=== PATIENT | male | born 1985 | race Caucasian/White ===

== ENCOUNTER → 2016-05-20 | Outpatient (CLI) | payer SELFPAY ==
[2016-05-20 10:25] VITALS: BP 129/80
== END ==
LOC: MHUC 09:02
PROVIDERS: ATTEND Physician Assistant
DX: J01.00 Acute maxillary sinusitis, unspecified (principal); R05 Cough
CPT/HCPCS: 99213

== ENCOUNTER → 2016-07-18 | Outpatient (CLI) | payer OTHER ==
[~2016-07-18] MED LIST: AMOX500C5 PO; CEPH-507 PO; PRED20TA PO
[2016-07-18 12:37] VITALS: BP 124/86
--- NOTE | 2016-07-18 12:37 | Urgent Care T Sheet Gen (E) ---
Intake General Temperature (Fahrenheit): 98.7 Pulse: 81 Blood Pressure Systolic: 124 Blood Pressure Diastolic: 86 Respirations: 18 SPO2: 96 Description of Symptoms Patient presents with a red, swollen, painful R thumb x 2 days. Denies smashing the area but states he bites his nails. Redness is located along the proximal portion of the nail. Bandaged it last night. Put some H2O2 on it earlier without improvement. History of Present Illness Home Meds Active Scripts Prednisone 20 Mg [id number] Mg PO DAILY #6 TAB Prov:EMMA ZHONG 05/20/16 Amoxicillin (Amoxil)500 Mg [id number] Mg PO QID Infection #28 CAP Ref 0 Prov:EMMA ZHONG 05/20/16 Respiratory Constitutional Symptoms: No syptoms reported Skin: Change in color Lesions All Other Systems Reviewed Remaining Systems: All other systems reviewed with negative findings Physical Exam Physical Exam General Appearance: WD/WN No apparent distress Skin Exam: Other (redness and swelling noted along the proximal R thumb nail and surrounding skin. no drainage. feels full but I see no purulent material that needs drained.) Extremity Exam: Full range of motion Normal capillary refill Departure Urgent Care Impression Impression: Primary Impression: Paronychia Qualified Code: L03.011 - Cellulitis of right finger Departure Disposition: 01 HOME OR SELF-CARE Condition: Stable Referrals: GRETA COOK MD (PCP) Additional Instructions: I have started the patient on Keflex for treatment. DC the H2O2 Wrap the finger. May soak in warm water and Epsom salt or warm water and soap Return as needed Patient understands DC instructions. All questions were answered. Scripts Cephalexin (Keflex)500 Mg [id number] Mg PO QID Infection #28 CAP Ref 0 Prov:EMMA ZHONG 07/18/16 End of report . EMMA ZHONG July 18, 2016 12:36
== END ==
LOC: MHUC 12:22
PROVIDERS: ATTEND Physician Assistant
DX: L03.011 Cellulitis of right finger (principal)
CPT/HCPCS: 99212

== ENCOUNTER → 2016-07-21 | Outpatient (CLI) | payer OTHER ==
[2016-07-21 21:46] VITALS: BP 137/87
--- NOTE | 2016-07-21 21:46 | Urgent Care T Sheet Gen (E) ---
Intake General Temperature (Fahrenheit): 98.9 Pulse: 78 Blood Pressure Systolic: 137 Blood Pressure Diastolic: 87 Respirations: 18 SPO2: 97 Chief Complaint: sore/infected R thumb Source: Patient Exam Limitations: No limitations History of Present Illness Initial Comments Pt reports he came in and was seen for this on a few days ago, and was started on antibiotics at that time. He feels that the infection is improving in general , but a white pocket formed at the edge of the nail today, and his mother saw it and was very concerned about it. Pt reports no fever, chills, or malaise. He has had less redness or pain in the area, and has almost normal movement of the digit, as the swelling has almost entirely gone. He is here to find out if it needs to be lanced--which he would prefer not to do--or whether it should improve on its own with his current treatment. Timing: Still present Severity: Mild Prior Treatment: Recently seen (07/18/16) Allergies: Coded Allergies: No Known Drug Allergies (Unverified , 07/21/16) Home Meds Active Scripts Cephalexin (Keflex)500 Mg [id number] Mg PO QID Infection #28 CAP Ref 0 Prov:EMMA ZHONG 07/18/16 Prednisone 20 Mg Qecbxa51 Mg PO DAILY #6 TAB Prov:EMMA ZHONG 05/20/16 Amoxicillin (Amoxil)500 Mg [id number] Mg PO QID Infection #28 CAP Ref 0 Prov:EMMA ZHONG 05/20/16 Respiratory Constitutional Symptoms: See HPINo Chills, No Fever, No Malaise EENTM: No symptoms reported Cardiovascular: No symptoms reported Musculoskeletal: No symptoms reported see HPI Skin: See HPI Neurological: No symptoms reportedNo Tingling, No Weakness All Other Systems Reviewed Remaining Systems: All other systems reviewed with negative findings Physical Exam Physical Exam General Appearance: WD/WN No apparent distress Eyes, Ears, Nose, Throat Ex: PERRL/EOMI Respiratory Exam: Chest non-tender Lungs clear Normal breath sounds Cardiovascular Exam: Regular rate, rhythm No murmur Skin Exam: Warm/dry/intact Other (Dull erythema surrounding posterior R thumb at the PIP and distally to the nail bed. Fluctuance and white fluid noted under the skin measuring about 1cm squared, but without tenderness to palpation or significant warmth noted. ) Extremity Exam: Non-tender Full range of motion Normal capillary refill Neurologic/Psychiatric Exam: Oriented times 4 No sensory deficits Departure Urgent Care Impression Chief Complaint: sore/infected R thumb Impression: Primary Impression: Cellulitis of right finger Departure Disposition: 01 HOME OR SELF-CARE Condition: Stable Referrals: GRETA COOK MD (PCP) Additional Instructions: Discussed with pt that I agree that the infection is improving. From history and exam, it appears that the antibiotic is working well. If he wished to have the area lanced, it might resolve a little more quickly, but since he does not want to do this I think continuing his treatment as before is fine. He should continue the Epsom salt soaks, which may allow it to drain naturally, and continue his antibiotics. Indications for follow up would be if the redness, pain, or swelling increases again, if he develops fever, chills, or malaise, if the symptoms are not continuing to improve, or other concerning symptoms appear. If not fully resolved by the end of the antibiotics, I recommend he call to discuss whether he should continue these for a few days more to be certain, but otherwise I think he will do well. Pt states understanding and agrees to plan. All questions answered. End of report . TACO DAVENPORT July 21, 2016 20:20
== END ==
LOC: MHUC 19:38
PROVIDERS: ATTEND Physician Assistant Medical
DX: L03.011 Cellulitis of right finger (principal)
CPT/HCPCS: 99212